=== PATIENT | male | born 1985 | race Caucasian/White ===

== ENCOUNTER 2017-07-10 16:52 | Emergency (ER) | payer SELFPAY ==
[~2017-07-10 16:52] MED LIST: CEPH-13 PO; CYCL10TA29 PO; DICL-192 PO; LOR5/325 PO; MOMR ENA; NAPR500T31 PO; PRED-1 PO; TRAM-420 PO
[2017-07-10 17:00] VITALS: BP 128/87
--- NOTE | 2017-07-10 17:01 | ER Report ---
History and Physical Time Seen By MD: 17:01 Hx. of Stated Complaint: PATIENT STATES THAT HIS LUNGS ARE ON FIRE FOR TWO WEEKS HPI/ROS CHIEF COMPLAINT: Lungs feel like they're on fire, bodyaches HISTORY OF PRESENT ILLNESS: 31-year-old male patient presents to emergency room with complaint of lungs feel like they're on fire. Patient states this been going on for the last 2 weeks. Patient states that things seem to get worse on Friday, stating that he feels like there is an elephant is sitting on his chest. He denies having any fevers, however states that he does not have a thermometer at home but has had episodes where his been warm and then chilled. He denies any nausea, vomiting or diarrhea. He states he is not taking any medication for this. He states that he has a history of bronchitis and pneumonia is concerned that this is developing into a pneumonia. REVIEW OF SYSTEMS: Respiratory: As noted above Cardiovascular: No chest pain, no palpitations. Gastrointestinal: No vomiting, no abdominal pain. Musculoskeletal: No back pain. Allergies: Coded Allergies: No Known Drug Allergies (Unverified , 07/10/17) Home Meds Active Scripts Promethazine HCl/Codeine (Prometh-Codein 6.25-10 mg/5 ml) 5 Ml Syrup, 1 TSP PO QHS Y for COUGH, #120 ML Prov:IZZY COLON SURGERY ATTENDANT 07/10/17 Albuterol Sulfate (VENTOLIN HFA) 18 Gm Inh, 2 PUFF INH Q4-6H Y for SHORTNESS OF BREATH, #1 INH Prov:IZZY COLON 07/10/17 Mometasone Furoate (NASONEX) 17 Gm [place], 2 SPRAY PATY DAILY for 14 Days, #1 BOTTLE 2 sprays in each nostril once a day for 2-3 weeks. Prov:PIERRE GARCIA SURGERY ATTENDANT-BC 03/23/17 Tramadol Hcl (TRAMADOL HCL) 50 Mg Tablet, 1 TAB PO Q6H Y for PAIN, #15 MG TAKE ONE TO TWO TABLETS BY MOUTH EVERY FOUR TO SIX HOURS NEEDED Prov:KELLY BYRNE DO 03/07/17 Past Medical/Surgical History Patient has a past medical history of a right shoulder injury, pneumonia, bronchitis. Patient denies any surgical history. Reviewed Nurses Notes: Yes Hx Substance Use Disorder: No Hx Alcohol Use: No Constitutional Vital Sign - Last 24 Hours 07/10/17 07/10/17 07/10/17 07/10/17 16:57 16:57 17:00 17:22 Temp 98.3 Pulse 56 60 Resp 19 B/P (MAP) 142/99 (113) 142/99 128/87 (101) Pulse Ox 96 95 O2 Delivery Room Air 07/10/17 07/10/17 17:52 18:22 Pulse 52 57 Pulse Ox 95 95 Physical Exam General Appearance: The patient is alert, has no immediate need for airway protection and no current signs of toxicity. ENT: Tympanic membranes are pearly-abdul, auditory canals are patent, mucous membranes are moist. Respiratory: Chest is non tender, lungs are clear to auscultation. Cardiac: regular rate and rhythm Gastrointestinal: Abdomen is soft and non tender, no masses, bowel sounds normal. Musculoskeletal: Neck: Neck is supple and non tender. Extremities have full range of motion and are non tender. Skin: No rashes or lesions. DIFFERENTIAL DIAGNOSIS: After history and physical exam differential diagnosis was considered for shortness of breath including but not limited to pulmonary infectious process, COPD, asthma, pulmonary embolus and congestive heart failure. Medical Decision Making Data Points Result Diagram: 07/10/17 1723 07/10/17 1723 Laboratory Hematology Test 07/10/17 16:58 07/10/17 17:23 Influenza Virus Type A (PCR) Positive (NEGATIVE) Influenza Virus Type B (PCR) Negative (NEGATIVE) Group A Streptococcus Screen Negative (NEGATIVE) Red Blood Count 4.76 M/uL (4.00-5.60) Mean Corpuscular Volume 90.9 fL (80.0-96.0) Mean Corpuscular Hemoglobin 32.2 pg (26.0-33.0) Mean Corpuscular Hemoglobin Concent 35.4 g/dL (32.0-36.0) Red Cell Distribution Width 13.6 % (11.5-14.5) Mean Platelet Volume 8.6 fL (7.2-11.1) Neutrophils (%) (Auto) 56.3 % (39.4-72.5) Lymphocytes (%) (Auto) 29.4 % (17.6-49.6) Monocytes (%) (Auto) 12.2 % (4.1-12.4) Eosinophils (%) (Auto) 1.7 % (0.4-6.7) Basophils (%) (Auto) 0.4 % (0.3-1.4) Nucleated RBC Relative Count (auto) 0.1 /100WBC Neutrophils # (Auto) 3.3 K/uL (2.0-7.4) Lymphocytes # (Auto) 1.7 K/uL (1.3-3.6) Monocytes # (Auto) 0.7 K/uL (0.3-1.0) Eosinophils # (Auto) 0.1 K/uL (0.0-0.5) Basophils # (Auto) 0.0 K/uL (0.0-0.1) Nucleated RBC Absolute Count (auto) 0.01 K/uL Sodium Level 136 mmol/L (137-145) Potassium Level 3.7 mmol/L (3.5-5.0) Chloride Level 100 mmol/L (98-107) Carbon Dioxide Level 27 mmol/L (22-30) Blood Urea Nitrogen 12 mg/dl (9-21) Creatinine 0.90 mg/dl (0.66-1.25) Glomerular Filtration Rate Calc > 60.0 Random Glucose 86 mg/dl (75-110) Calcium Level 8.9 mg/dl (8.4-10.2) Total Bilirubin 0.3 mg/dl (0.2-1.3) Aspartate Amino Transf (AST/SGOT) 36 U/L (0-35) Alanine Aminotransferase (ALT/SGPT) 42 U/L (0-56) Alkaline Phosphatase 77 U/L (0-126) Troponin I < 0.012 ng/ml Total Protein 7.3 gm/dl (6.3-8.2) Albumin 4.0 g/dl (3.5-5.0) Chemistry Test 07/10/17 16:58 07/10/17 17:23 Influenza Virus Type A (PCR) Positive (NEGATIVE) Influenza Virus Type B (PCR) Negative (NEGATIVE) Group A Streptococcus Screen Negative (NEGATIVE) White Blood Count 5.8 k/uL (4.5-11.0) Red Blood Count 4.76 M/uL (4.00-5.60) Hemoglobin 15.3 g/dL (14.0-18.0) Hematocrit 43.2 % (42.0-52.0) Mean Corpuscular Volume 90.9 fL (80.0-96.0) Mean Corpuscular Hemoglobin 32.2 pg (26.0-33.0) Mean Corpuscular Hemoglobin Concent 35.4 g/dL (32.0-36.0) Red Cell Distribution Width 13.6 % (11.5-14.5) Platelet Count 169 K/uL (150-450) Mean Platelet Volume 8.6 fL (7.2-11.1) Neutrophils (%) (Auto) 56.3 % (39.4-72.5) Lymphocytes (%) (Auto) 29.4 % (17.6-49.6) Monocytes (%) (Auto) 12.2 % (4.1-12.4) Eosinophils (%) (Auto) 1.7 % (0.4-6.7) Basophils (%) (Auto) 0.4 % (0.3-1.4) Nucleated RBC Relative Count (auto) 0.1 /100WBC Neutrophils # (Auto) 3.3 K/uL (2.0-7.4) Lymphocytes # (Auto) 1.7 K/uL (1.3-3.6) Monocytes # (Auto) 0.7 K/uL (0.3-1.0) Eosinophils # (Auto) 0.1 K/uL (0.0-0.5) Basophils # (Auto) 0.0 K/uL (0.0-0.1) Nucleated RBC Absolute Count (auto) 0.01 K/uL Glomerular Filtration Rate Calc > 60.0 Calcium Level 8.9 mg/dl (8.4-10.2) Total Bilirubin 0.3 mg/dl (0.2-1.3) Aspartate Amino Transf (AST/SGOT) 36 U/L (0-35) Alanine Aminotransferase (ALT/SGPT) 42 U/L (0-56) Alkaline Phosphatase 77 U/L (0-126) Troponin I < 0.012 ng/ml Total Protein 7.3 gm/dl (6.3-8.2) Albumin 4.0 g/dl (3.5-5.0) EKG/Imaging EKG Interpretation 12 lead EKG: Rhythm: Sinus bradycardia [place]: Left axis deviation QRS: normal ST segments: normal Imaging 2 VIEWS CHEST INDICATION: Respiratory distress. COMPARISON: None available FINDINGS: Cardiomediastinal silhouette and pulmonary vessels within normal limits. There is no focal infiltrate or lobar consolidation. There is no pneumothorax or pleural effusion. No nodule. Upper abdomen is unremarkable. No acute bony abnormality. IMPRESSION: 1. No acute cardiopulmonary process. Report Dictated By: Ag Rojas at 07/10/2017 5:41 PM Report E-Signed By: Ag Rojas at 07/10/2017 5:42 PM ED Course/Re-evaluation ED Course Patient was admitted to an exam room, history and physical obtained. Differential diagnoses were considered. On examination lungs were clear, heart was regular. A CBC, CMP, troponin, EKG, chest x-ray, influenza, strep screen were done. CBC, CMP, troponin were negative. EKG showed a normal sinus rhythm, chest x-ray showed no acute cardiopulmonary processes. Influenza was positive for influenza a. Troponin is negative. Discuss findings with the patient. With everything getting worse on Friday believe that is likely when he started having the influenza. Since we are 5 days out of do not believe there is any point in placing him on Tamiflu. I did discuss with patient that typically this condition resolves and 7 days and with this being 5 days we will have a couple more days. He is to increase his fluid intake, get plenty of rest, take Tylenol or ibuprofen as needed for pain. Patient verbalized understanding and agreement with plan. Decision to Disposition Date: Jul 10, 2017 Decision to Disposition Time: 18:20 Depart Departure Latest Vital Signs Vital Signs Date Time Temp Pulse Resp B/P (MAP) Pulse Ox O2 Delivery O2 Flow Rate FiO2 07/10/17 18:22 57 95 07/10/17 17:00 128/87 (101) 07/10/17 16:57 98.3 19 Room Air Impression: Primary Impression: Influenza A Condition: Improved Disposition: HOME OR SELF-CARE New Scripts Promethazine HCl/Codeine (Prometh-Codein 6.25-10 mg/5 ml) 5 Ml Syrup 1 TSP PO QHS Y for COUGH, #120 ML Prov: IZZY COLON 07/10/17 Albuterol Sulfate (VENTOLIN HFA) 18 Gm Inh 2 PUFF INH Q4-6H Y for SHORTNESS OF BREATH, #1 INH Prov: IZZY COLON 3/1/18 Patient Instructions: Influenza (ED) Additional Instructions: Increase fluid intake. Get plenty of rest. Take Tylenol or Ibuprofen as needed for fevers. Stay home until you are fever free for 24 hours. Return to the ER if condition worsens. Follow up with your primary care provider in the next week with any concerns. IZZY COLON Jul 10, 2017 17:01
[2017-07-10 17:40] LABS: PLATELET COUNT, AUTOMATED 169 K/uL (150-450)
--- NOTE | 2017-07-10 17:46 | RADIOLOGY IMAGING REPORT ---
[place] [facility] [place] Caesar Lovett : 1985 MR: [id number] V: [id number] EXAM DATE: ORDERING PHYSICIAN: IZZY COLON TECHNOLOGIST: Location: [facility] - [place] Patient: Caesar Lovett : 1985 Visit/Account:[id number] Date of Sevice: 07/10/2017 2 VIEWS CHEST INDICATION: Respiratory distress. COMPARISON: None available FINDINGS: Cardiomediastinal silhouette and pulmonary vessels within normal limits. There is no focal infiltrate or lobar consolidation. There is no pneumothorax or pleural effusion. No nodule. Upper abdomen is unremarkable. No acute bony abnormality. IMPRESSION: 1. No acute cardiopulmonary process. Report Dictated By: Ag Rojas at 07/10/2017 5:41 PM Report E-Signed By: Ag Rojsa at 07/10/2017 5:42 PM WSN:[id number]
[2017-07-10] MEDS ORDERED: ALB18R INH (18:16)
[2017-07-10] MEDS ORDERED: PROM5SYR PO (18:16)
--- NOTE | 2017-07-10 22:57 | EKG ---
FACILITY: [facility] PATIENT NAME: MIGUELINA PHAM : [id number] MR: [id number] V: [id number] EXAM DATE: ORDERING PHYSICIAN: IZZY COLON TECHNOLOGIST: CHEO Monk Reason : RESP Blood Pressure : / mmHG Vent. Rate : 053 BPM Atrial Rate : 053 BPM P-R Int : 148 ms QRS Dur : 078 ms QT Int : 406 ms P-R-T Axes : 064 -32 051 degrees QTc Int : 380 ms Sinus bradycardia Left axis deviation Abnormal ECG No previous ECGs available Confirmed by LACHELLE RODRIGUEZ ([id number]) on 07/11/2017 6:24:48 AM Referred By: IZZY Confirmed By:LACHELLE RODRIGUEZ
== END 2017-07-10 18:34 | disposition home or self-care (01) ==
LOC: ER 18:18
DX: J09.X2 Influenza due to identified novel influenza A virus with other respiratory manifestations (principal)
CPT/HCPCS: 36415; 71046; 82040; 82247; 82310; 82374; 82435; 82565; 82947; 84075; 84132; 84155; 84295; 84450; 84460; 84484; 84520; 85025; 87081; 87502; 87880; 93005; 99283

== ENCOUNTER 2017-07-23 02:55 | Emergency (ER) | payer SELFPAY ==
[~2017-07-23 02:55] MED LIST changes: +ALB18R INH; +PROM5SYR PO
--- NOTE | 2017-07-23 03:06 | ER Report ---
History and Physical Time Seen By MD: 03:01 Hx. of Stated Complaint: patient was awoke with pain and stuffyness in left nostril, pain radiates to left eye. nose is reddened, "nostril feels like it is getting split open". HPI/ROS CHIEF COMPLAINT: pain in left side of face/nose HISTORY OF PRESENT ILLNESS: This is a 32 year old male. He had some pain in the left nose start yesterday about 1am. This has been increasing through the last 24 hours. Now with severe swelling and pain in the left nose. Pain extending in to the maxillary area. Some irritation and feeling of pressure of the left eye as well. No rash or lesions noted on skin otherwise. Minimal sore throat. No ear pain. No vision changes. No headache. No shortness of breath. No chest pain. Allergies: Coded Allergies: No Known Drug Allergies (Unverified , 07/23/17) Home Meds Active Scripts Sulfamethoxazole/Trimet 800-160 Mg Tab (BACTRIM DS TABLET) 1 Each Tablet, 1 TAB PO BID for 10 Days, #20 TAB 0 Refills Prov:ELVIN RENTERIA MD 07/23/17 Discontinued Scripts Promethazine HCl/Codeine (Prometh-Codein 6.25-10 mg/5 ml) 5 Ml Syrup, 1 TSP PO QHS Y for COUGH, #120 ML Prov:IZZY COLON 07/10/17 Albuterol Sulfate (VENTOLIN HFA) 18 Gm Inh, 2 PUFF INH Q4-6H Y for SHORTNESS OF BREATH, #1 INH Prov:IZZY COLON 07/10/17 Mometasone Furoate (NASONEX) 17 Gm [place], 2 SPRAY PATY DAILY for 14 Days, #1 BOTTLE 2 sprays in each nostril once a day for 2-3 weeks. Prov:FRANSISCO GARCIAP-BC 03/23/17 Tramadol Hcl (TRAMADOL HCL) 50 Mg Tablet, 1 TAB PO Q6H Y for PAIN, #15 MG TAKE ONE TO TWO TABLETS BY MOUTH EVERY FOUR TO SIX HOURS NEEDED Prov:KELLY BYRNE DO 03/07/17 Reviewed Nurses Notes: Yes Hx Substance Use Disorder: No Hx Alcohol Use: No Constitutional Vital Sign - Last 24 Hours 07/23/17 07/23/17 02:58 05:20 Temp 97.6 Pulse 59 58 Resp 16 16 B/P (MAP) 142/93 139/80 (99) Pulse Ox 96 94 O2 Delivery Room Air Physical Exam General Appearance: The patient is alert. No acute distress. Eyes: Pupils are equal, round. Reactive to light. No pallor or icterus, but does have some scleral injection. Extraocular movements are intact. Used Proparacaine 0.5% drops to numb the left eye. Slit lamp exam: Normal anterior chamber. No signs of foreign body. Scleral injection is mild, sparing area around iris. No dendritic changes noted. Fluorescein shows no defects on the cornea. ENT: Mucous membranes are moist. Oral mucosa is normal in appearance. Posterior oropharynx has no erythema or exudates. Nasal mucosa shows a normal nasal passage on the right side. Left is very erythematous with some swelling. Normal appearing nasal septum. Lateral wall of the left nasal passage with swelling and very tender. Tympanic membranes and canals are normal. Neck: Supple and non tender. No lymphadenopathy. Respiratory: Breathing easily and unlabored. Lungs are clear to auscultation. Cardiovascular: Regular rate and rhythm. Neurological: Alert and oriented x3. No cranial nerve deficits noted. Skin: Warm and dry. DIFFERENTIAL DIAGNOSIS: After history and physical exam, differential diagnosis was considered for what appears to be cellulitis of the nasal tissue, with some pain into the left maxillary area. No signs of ocular involvement. No redness of the eyelids or signs of preseptal or periorbital cellulitis. Concern about the rapid change he has noticed. I would like to get labs, start IV antibiotics , and get a facial CT with contrast. Medical Decision Making Data Points Result Diagram: 07/23/17 0324 07/23/17 0324 Laboratory Hematology Test 07/23/17 03:24 Red Blood Count 5.32 M/uL (4.00-5.60) Mean Corpuscular Volume 89.4 fL (80.0-96.0) Mean Corpuscular Hemoglobin 31.8 pg (26.0-33.0) Mean Corpuscular Hemoglobin Concent 35.6 g/dL (32.0-36.0) Red Cell Distribution Width 13.4 % (11.5-14.5) Mean Platelet Volume 8.9 fL (7.2-11.1) Neutrophils (%) (Auto) 53.9 % (39.4-72.5) Lymphocytes (%) (Auto) 35.2 % (17.6-49.6) Monocytes (%) (Auto) 9.3 % (4.1-12.4) Eosinophils (%) (Auto) 1.1 % (0.4-6.7) Basophils (%) (Auto) 0.5 % (0.3-1.4) Nucleated RBC Relative Count (auto) 0.1 /100WBC Neutrophils # (Auto) 4.6 K/uL (2.0-7.4) Lymphocytes # (Auto) 3.0 K/uL (1.3-3.6) Monocytes # (Auto) 0.8 K/uL (0.3-1.0) Eosinophils # (Auto) 0.1 K/uL (0.0-0.5) Basophils # (Auto) 0.0 K/uL (0.0-0.1) Nucleated RBC Absolute Count (auto) 0.01 K/uL Erythrocyte Sedimentation Rate 1 mm/HOUR (0-15) Sodium Level 139 mmol/L (137-145) Potassium Level 3.5 mmol/L (3.5-5.0) Chloride Level 99 mmol/L (98-107) Carbon Dioxide Level 25 mmol/L (22-30) Blood Urea Nitrogen 13 mg/dl (9-21) Creatinine 0.90 mg/dl (0.66-1.25) Glomerular Filtration Rate Calc > 60.0 Random Glucose 94 mg/dl (75-110) Calcium Level 9.2 mg/dl (8.4-10.2) Total Bilirubin 0.7 mg/dl (0.2-1.3) Aspartate Amino Transf (AST/SGOT) 23 U/L (0-35) Alanine Aminotransferase (ALT/SGPT) 32 U/L (0-56) Alkaline Phosphatase 73 U/L (0-126) C-Reactive Protein < 0.5 mg/dl (<1.0) Total Protein 7.6 gm/dl (6.3-8.2) Albumin 4.3 g/dl (3.5-5.0) Chemistry Test 07/23/17 03:24 White Blood Count 8.5 k/uL (4.5-11.0) Red Blood Count 5.32 M/uL (4.00-5.60) Hemoglobin 16.9 g/dL (14.0-18.0) Hematocrit 47.6 % (42.0-52.0) Mean Corpuscular Volume 89.4 fL (80.0-96.0) Mean Corpuscular Hemoglobin 31.8 pg (26.0-33.0) Mean Corpuscular Hemoglobin Concent 35.6 g/dL (32.0-36.0) Red Cell Distribution Width 13.4 % (11.5-14.5) Platelet Count 210 K/uL (150-450) Mean Platelet Volume 8.9 fL (7.2-11.1) Neutrophils (%) (Auto) 53.9 % (39.4-72.5) Lymphocytes (%) (Auto) 35.2 % (17.6-49.6) Monocytes (%) (Auto) 9.3 % (4.1-12.4) Eosinophils (%) (Auto) 1.1 % (0.4-6.7) Basophils (%) (Auto) 0.5 % (0.3-1.4) Nucleated RBC Relative Count (auto) 0.1 /100WBC Neutrophils # (Auto) 4.6 K/uL (2.0-7.4) Lymphocytes # (Auto) 3.0 K/uL (1.3-3.6) Monocytes # (Auto) 0.8 K/uL (0.3-1.0) Eosinophils # (Auto) 0.1 K/uL (0.0-0.5) Basophils # (Auto) 0.0 K/uL (0.0-0.1) Nucleated RBC Absolute Count (auto) 0.01 K/uL Erythrocyte Sedimentation Rate 1 mm/HOUR (0-15) Glomerular Filtration Rate Calc > 60.0 Calcium Level 9.2 mg/dl (8.4-10.2) Total Bilirubin 0.7 mg/dl (0.2-1.3) Aspartate Amino Transf (AST/SGOT) 23 U/L (0-35) Alanine Aminotransferase (ALT/SGPT) 32 U/L (0-56) Alkaline Phosphatase 73 U/L (0-126) C-Reactive Protein < 0.5 mg/dl (<1.0) Total Protein 7.6 gm/dl (6.3-8.2) Albumin 4.3 g/dl (3.5-5.0) EKG/Imaging Imaging EXAMINATION: CT Face with intravenous contrast HISTORY: Nasal/facial cellulitis. COMPARISON: None. TECHNIQUE: Axial images were obtained from the superior aspect of the orbits through the inferior aspect of mandible with IV contrast. Coronal and sagittal reformatted images were obtained from the axial source data. One of the following dose optimization techniques was utilized in the performance of this exam: Automated exposure control; adjustment of the mA and/ or kV according to the patient's size; or use of an iterative reconstruction technique. Specific details can be referenced in the facility's radiology CT exam operational policy. CONTRAST: 75 mL of IV Isovue-370 FINDINGS: Soft Tissues: Mild soft tissue swelling in the left side of the nose. No radiopaque foreign body or fluid collection. No osseous erosion. Mandible / TMJ: Negative. Maxillae / pterygoid plates: Unerupted teeth posterior to the incisors. Zygoma / zygomatic arches: Negative. Orbits: Negative. Nasal bones / nasal septum: Leftward nasal septal deviation. Otherwise negative. Frontal bones: Negative. Enhancement: Negative. Sinuses: Negative. Visualized brain: Negative. IMPRESSION:Mild soft tissue swelling in the left side of the nose with no fluid collection, radiopaque foreign body, or osseous erosion. Report Dictated By: Fransisco Crawford MD at 07/23/2017 4:56 AM ED Course/Re-evaluation Clinical Indication for ER IV: IV Access ED Course After exam, no signs of ocular problems. IV Started and labs drawn. Given Rocephin 1g IV and Solu-Medrol 125mg IV. Labs negative and CT scan does not reveal any signs of orbital or preseptal cellulitis, and no sign of sinusitis, but cellulitis of the nose without signs of abscess. Will treat with oral Bactrim DS and have him follow-up with ENT. Decision to Disposition Date: Jul 23, 2017 Decision to Disposition Time: 05:12 Depart Departure Latest Vital Signs Vital Signs Date Time Temp Pulse Resp B/P (MAP) Pulse Ox O2 Delivery O2 Flow Rate FiO2 07/23/17 05:20 58 16 139/80 (99) 94 Room Air 07/23/17 02:58 97.6 Impression: Primary Impression: Cellulitis of nose Condition: Improved Disposition: HOME OR SELF-CARE Referrals: NIRANJAN LIN JR, MD New Scripts Sulfamethoxazole/Trimet 800-160 Mg Tab (BACTRIM DS TABLET) 1 Each Tablet 1 TAB PO BID for 10 Days, #20 TAB 0 Refills Prov: ELVIN RENTERIA MD 07/23/17 Patient Instructions: Cellulitis (ED) Additional Instructions: Bactrim DS twice a day for 10 days. Please follow-up with ENT in the next 48 hours for re-evaluation. Call Dr. Lin's office to schedule an appointment. ELVIN RENTERIA MD Jul 23, 2017 03:06
[2017-07-23] MEDS ORDERED: FLUORESCEIN SOD 1 MG 1 EA STRP OU ONE (03:10)
[2017-07-23] MEDS ORDERED: PROPARACAINE 0.5% OP 15ML BTL OU ONE (03:10)
[2017-07-23] MEDS ORDERED: methylPREDNIS SUCC 125 MG/2ML IVP ONE (03:20)
[2017-07-23] MEDS ORDERED: cefTRIAXone(*) 1 GM VIAL 1 GM in NS(*) 0.9% 100 ML ADDVANT BAG 100 ML IVPB ONE (03:20)
[2017-07-23 03:40] LABS: PLATELET COUNT, AUTOMATED 210 K/uL (150-450)
[2017-07-23] MEDS ORDERED: IOPAMIDOL 76% 75 ML INFUS BTL 75 ML ONE (04:03)
[2017-07-23] MEDS ORDERED: IOPAMIDOL 76% 50 ML INFUS BTL 50 ML ONE (04:06)
--- NOTE | 2017-07-23 05:08 | RADIOLOGY IMAGING REPORT ---
[place] [facility] [place] NAME: Quoc Lovett : 1985 MR: [id number] V: [id number] EXAM DATE: ORDERING PHYSICIAN: ELVIN RENTERIA TECHNOLOGIST: Location: [facility] - [place] Patient: Quoc Lovett : 1985 Visit/Account:[id number] Date of Sevice: 07/23/2017 EXAMINATION: CT Face with intravenous contrast HISTORY: Nasal/facial cellulitis. COMPARISON: None. TECHNIQUE: Axial images were obtained from the superior aspect of the orbits through the inferior as pect of mandible with IV contrast. Coronal and sagittal reformatted images were obtained from the axi al source data. One of the following dose optimization techniques was utilized in the performance of this exam: Autom ated exposure control; adjustment of the mA and/or kV according to the patient's size; or use of an i terative reconstruction technique. Specific details can be referenced in the facility's radiology C T exam operational policy. CONTRAST: 75 mL of IV Isovue-370 FINDINGS: Soft Tissues: Mild soft tissue swelling in the left side of the nose. No radiopaque foreign body or f luid collection. No osseous erosion. Mandible / TMJ: Negative. Maxillae / pterygoid plates: Unerupted teeth posterior to the incisors. Zygoma / zygomatic arches: Negative. Orbits: Negative. Nasal bones / nasal septum: Leftward nasal septal deviation. Otherwise negative. Frontal bones: Negative. Enhancement: Negative. Sinuses: Negative. Visualized brain: Negative. IMPRESSION:Mild soft tissue swelling in the left side of the nose with no fluid collection, radiopaqu e foreign body, or osseous erosion. Report Dictated By: Fransisco Crawford MD at 07/23/2017 4:56 AM Report E-Signed By: Fransisco Crawford MD at 07/23/2017 5:03 AM WSN:[id number]
[2017-07-23] MEDS ORDERED: SULF-198 PO (05:14)
[2017-07-23 05:20] VITALS: BP 139/80
[2017-07-23] MEDS ORDERED: ACET/HYDROC 5/325MG TH ER ONLY 2 TAB/BOTTLE PO ONE (05:20)
[2017-07-23] MEDS ORDERED: TRIMETHOPRIM/SULFA 160-800 TH 2 TAB/BOTTLE PO ONE (05:20)
[2017-07-25] MEDS ORDERED: LOR5/325 PO (11:11)
[2017-07-25] MEDS ORDERED: MUPI22OI28 TP (12:07)
== END 2017-07-23 05:23 | disposition home or self-care (01) ==
LOC: ER 03:04
DX: J34.0 Abscess, furuncle and carbuncle of nose (principal)
CPT/HCPCS: 70487; 85025; 85651; 86140; 99284; J0696; J2930; J7050; Q9967; 82040; 82247; 82310; 82374; 82435; 82565; 82947; 84075; 84132; 84155; 84295; 84450; 84460; 84520; 96365; 96375

== ENCOUNTER 2017-07-23 16:38 | Emergency (ER) | payer SELFPAY ==
[~2017-07-23 16:38] MED LIST changes: +SULF-198 PO
[2017-07-23 16:49] VITALS: BP 149/83
--- NOTE | 2017-07-23 16:53 | ER Report ---
History and Physical Time Seen By MD: 16:51 HPI/ROS CHIEF COMPLAINT: Nose swelling HISTORY OF PRESENT ILLNESS: Otherwise healthy 32-year-old male comes to the emergency Department today with swelling of his left naris patient was seen less than 12 hours ago in this emergency department had a CAT scan performed showed no obvious abscess clearly cellulitic change patient was prescribed antibiotics pain medication and follow up with ENT he notices that it was going from [place] darker color purple he did take his Antivert here he took a 2nd dose last night and is further doses morning patient was concerned of this coloration change and wanted to have an evaluation done patient has no neuro focal complaints REVIEW OF SYSTEMS: Respiratory: No cough, no dyspnea. Cardiovascular: No chest pain, no palpitations. Gastrointestinal: No vomiting, no abdominal pain. Musculoskeletal: No back pain. Remainder of the 14 system rev: Yes Allergies: Coded Allergies: No Known Drug Allergies (Unverified , 07/23/17) Home Meds Active Scripts Sulfamethoxazole/Trimet 800-160 Mg Tab (BACTRIM DS TABLET) 1 Each Tablet, 1 TAB PO BID for 10 Days, #20 TAB 0 Refills Prov:ELVIN RENTERIA MD 07/23/17 Discontinued Scripts Promethazine HCl/Codeine (Prometh-Codein 6.25-10 mg/5 ml) 5 Ml Syrup, 1 TSP PO QHS Y for COUGH, #120 ML Prov:IZZY COLON 07/10/17 Albuterol Sulfate (VENTOLIN HFA) 18 Gm Inh, 2 PUFF INH Q4-6H Y for SHORTNESS OF BREATH, #1 INH Prov:IZZY COLON 07/10/17 Mometasone Furoate (NASONEX) 17 Gm Otoe, 2 SPRAY PATY DAILY for 14 Days, #1 BOTTLE 2 sprays in each nostril once a day for 2-3 weeks. Prov:PIERRE GARCIA-BC 03/23/17 Tramadol Hcl (TRAMADOL HCL) 50 Mg Tablet, 1 TAB PO Q6H Y for PAIN, #15 MG TAKE ONE TO TWO TABLETS BY MOUTH EVERY FOUR TO SIX HOURS NEEDED Prov:KELLY BYRNE DO 03/07/17 Reviewed Nurses Notes: Yes Old Medical Records Reviewed: Yes Hx Substance Use Disorder: No Hx Alcohol Use: No Physical Exam General appearance: Alert no distress. Respiratory: Chest is non tender, lungs are clear to auscultation. Cardiac: Regular rate and rhythm [ ] Nose examination patient is obviously lytic changes to the left anterior lateral naris no obvious signs of a abscess formation nonfluctuant read warm and erythematous consistent with cellulitis no septal hematomas or other findings of note DIFFERENTIAL DIAGNOSIS: After history and physical exam differential diagnosis was considered for cellulitis Medical Decision Making ED Course/Re-evaluation ED Course Clinical course medical decision-making spoke to the patient at great length reassured him that he'll be probably 5-7 days before he is clearance of this infection to continue his antibiotics follow up with ENT as directed medication for pain as needed no additional imaging at this time will be indicated because he had a scan done less than 12 hours ago he agrees with the plan will follow- up accordingly Decision to Disposition Date: Jul 23, 2017 Decision to Disposition Time: 16:52 Depart Departure Impression: Primary Impression: Cellulitis of nose Condition: Condition Unchanged Disposition: HOME OR SELF-CARE Patient Instructions: Cellulitis (DC) DICK GOMEZ MD Jul 23, 2017 16:53
[2017-07-25] MEDS ORDERED: LOR5/325 PO (11:11)
[2017-07-25] MEDS ORDERED: MUPI22OI28 TP (12:07)
== END 2017-07-23 16:57 | disposition home or self-care (01) ==
LOC: ER 16:54
DX: J34.0 Abscess, furuncle and carbuncle of nose (principal)
CPT/HCPCS: 99281